=== PATIENT | female | born 1980 | race Caucasian/White ===

== ENCOUNTER 2020-08-27 12:33 | Outpatient (REF) | payer OTHER, MEDICARE, MEDICAID, SELFPAY ==
--- NOTE | 2020-08-27 13:54 | MHC.AU.P13 ---
Hearing Instrument Follow-Up- Binaural Date of Visit: 08/27/20 Package Pick Up Used: ASL- By Video Right Ear: Customer Service Supervisor: Lisset Model: [place] i1600 P+BTE Serial Number: [id number] Repair Warranty: 06/27/2021 Battery Size: 13 Color: Brown Tubing: Tube Lock Type of Mold: Lisset [id number] Type of Wax Guard: Left Ear: Customer Service Supervisor: Lisset Model: [place] i1600 P+BTE Serial Number: [id number] RepairWarranty: 06/27/2021 Battery Size: 13 Color: Brown Type of Mold: Lisset [id number] Type of Wax Guard: Follow-Up Summary: Patient reports Left ear pain and when swallowing some pressure. Feels her ear is shrinking and tender to the touch. Hears an echo, but the hearing has significantly decreased. Otoscopy show clear canals bilaterally and normal tympanogram for the left ear. Advise medical consultation with Dr. Dale and gave phone number. Left aid is not working - Patient did not bring left aid with her today because she has not been wearing it. Right aid, getting feedback, needs new earmolds. Took impressions of both ears without complication and will order skeleton molds from [employer]. Patient will contact PCP for order for new hearing test. WHEN ORDER RECEIVED, NEED TO SCHEDULE HEARING TEST AND EARMOLD FITTING. Recommendations: Recommendations (Other): Patient will contact PCP for order for new hearing test. WHEN ORDER RECEIVED, NEED TO SCHEDULE HEARING TEST AND EARMOLD FITTING. Diagnosis Code(s): Primary Diagnosis: H90.3 Bilateral Sensorineural Hearing Loss Services Performed: Ear Impression (Quantity): 2 NICHOLAS Maintenance, Minor Repair (Quantity): 1 Signature: Provider: Rodney Anderson, [facility]
== END 2020-08-27 12:34 | disposition home or self-care (01) ==
LOC: HO.HAP 12:33
PROVIDERS: Visit Provider Nurse Practitioner Family
DX: Z46.1 Encounter for fitting and adjustment of hearing aid (principal); H90.3 Sensorineural hearing loss, bilateral
CPT/HCPCS: 99499

== ENCOUNTER 2020-11-13 15:53 | Outpatient (REF) | payer MEDICARE, MEDICAID, SELFPAY | END 2020-11-13 15:54 | disposition home or self-care (01) | LOC: HO.HAP 15:53 | PROVIDERS: Visit Provider Nurse Practitioner Family | DX: Z46.1 Encounter for fitting and adjustment of hearing aid (principal); H90.3 Sensorineural hearing loss, bilateral | CPT/HCPCS: 92592; V5264; V5266 ==

== ENCOUNTER 2020-11-28 15:33 | Outpatient (REF) | payer MEDICARE, MEDICAID, SELFPAY ==
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
== END 2020-11-28 15:34 | disposition home or self-care (01) ==
LOC: HO.SH 15:33
PROVIDERS: Visit Provider Nurse Practitioner Family
DX: H90.3 Sensorineural hearing loss, bilateral (principal)
CPT/HCPCS: 92557; 92567

== ENCOUNTER 2021-08-22 10:02 | Outpatient (REF) | payer MEDICARE, MEDICAID, SELFPAY | END 2021-08-22 10:03 | disposition home or self-care (01) | LOC: HO.HAP 10:02 | PROVIDERS: Visit Provider Nurse Practitioner Family | DX: Z46.1 Encounter for fitting and adjustment of hearing aid (principal); H90.3 Sensorineural hearing loss, bilateral | CPT/HCPCS: 92592; V5275 ==

== ENCOUNTER 2021-09-17 15:24 | Outpatient (REF) | payer MEDICARE, MEDICAID, SELFPAY | END 2021-09-17 15:25 | disposition home or self-care (01) | LOC: HO.HAP 15:24 | PROVIDERS: Visit Provider Nurse Practitioner Family | DX: Z46.1 Encounter for fitting and adjustment of hearing aid (principal); H90.3 Sensorineural hearing loss, bilateral | CPT/HCPCS: V5264; V5266 ==

== ENCOUNTER 2021-10-08 13:56 | Outpatient (REF) | payer MEDICARE, MEDICAID, SELFPAY | END 2021-10-08 13:57 | disposition home or self-care (01) | LOC: HO.HAP 13:56 | PROVIDERS: Visit Provider Nurse Practitioner Family | DX: Z13.89 Encounter for screening for other disorder (principal) ==

== ENCOUNTER 2021-12-11 14:55 | Outpatient (REF) | payer MEDICARE, MEDICAID, SELFPAY | END 2021-12-11 14:56 | disposition home or self-care (01) | LOC: HO.HAP 14:55 | PROVIDERS: Visit Provider Nurse Practitioner Family | DX: Z13.89 Encounter for screening for other disorder (principal) ==

== ENCOUNTER 2023-08-06 10:35 | Outpatient (REF) | payer MEDICARE, MEDICAID, SELFPAY ==
--- NOTE | 2023-08-06 13:57 | MHC.AU.MED ---
Medical Clearance for Hearing Instrumentation Date: 08/06/23 Patient Name: Arlyn Corrales Date of : 1980 Primary Care Provider: Referring Provider: Kay Blake PA-C We have seen your patient on 08/06/23 and have determined that they are a candidate for amplification (See accompanying report). Specifically, they would benefit from: Hearing aid use in the right ear There is a statute that addresses Medical Evaluation Requirements prior to fitting a patient with a hearing aid. According to [place] statute 265 CMR:6.03(1), (a) General. Except as provided in 265 CMR 6.03(1)(b), a music rehabilitation therapist shall not sell a hearing aid unless the prospective user has presented to the music rehabilitation therapist a written statement signed by a licensed physician that states that the patient's hearing loss has been medically evaluated and the patient may be considered a candidate for a hearing aid. The medical evaluation must have taken place within the preceding six months. Please note: Due to the [place] Statute referenced above, we cannot accept a signature other than that of a licensed physician. PROFILER and PA signatures cannot be accepted. I am in agreement with the above recommendation. There is no medical contraindication for hearing instrumentation. Physician Signature Date Physician Name (Printed)
== END 2023-08-06 10:36 | disposition home or self-care (01) ==
LOC: HO.SH 10:35
PROVIDERS: Visit Provider Physician Assistant
DX: H90.3 Sensorineural hearing loss, bilateral (principal)
CPT/HCPCS: 92557; 92567; 92590; V5275

== ENCOUNTER 2023-09-09 14:56 | Outpatient (REF) | payer MEDICARE, MEDICAID, SELFPAY | END 2023-09-09 14:57 | disposition home or self-care (01) | LOC: HO.HAP 14:56 | PROVIDERS: Visit Provider Family Medicine | DX: Z46.1 Encounter for fitting and adjustment of hearing aid (principal); H90.3 Sensorineural hearing loss, bilateral | CPT/HCPCS: V5011; V5020; V5241; V5257; V5264 ==

== ENCOUNTER 2023-09-30 14:04 | Outpatient (REF) | payer MEDICARE, MEDICAID, SELFPAY | END 2023-09-30 14:05 | disposition home or self-care (01) | LOC: HO.HAP 14:04 | PROVIDERS: Visit Provider Family Medicine | DX: Z13.89 Encounter for screening for other disorder (principal) ==

== ENCOUNTER 2024-05-10 17:56 | Emergency (ER) | payer OTHER, SELFPAY ==
--- NOTE | ~2024-05-10 | XR_ITS ---
EXAMINATION: XR HAND, LEFT CLINICAL INFORMATION: pain 5th finger, injured at work COMPARISON: None available. TECHNIQUE: PA, lateral, and oblique views of the left hand. FINDINGS: The bones and soft tissues are normal. No fracture. Alignment is anatomic. Joint spaces are maintained. No erosions or soft tissue calcifications. XR/XR hand LT min 3V IMPRESSION: Normal left hand. Electronically signed by: Kirby Cordero MD 05/10/2024 08:06 PM MYKEL SAUER
--- NOTE | 2024-05-10 18:04 | ED.GENADULT ---
HPI - General Adult General Chief complaint: Extremity Injury, Upper Stated complaint: LT hand inj work related Time Seen by Provider: 05/10/24 19:23 Source: patient and market maker ( Patient with hearing impairment only reads lips.) Mode of arrival: ambulatory Limitations: no limitations History of Present Illness ED Provider: DR. Santana HPI narrative: A 43-year-old female came in for evaluation of left hand injury at work. Patient is right-handed dominant. patient was trying to loosen a lug nut from the machine at work when the not suddenly gotten loose patient strike the small finger and the lateral aspect (ulnar aspect) of the left hand in the machine. patient is complaining of severe left hand pain mostly on the ulnar side. Related Data Allergies Allergy/AdvReac Type Severity Reaction Status Date / Time Opioids - Morphine Analogues Allergy Anaphylaxis Verified 05/10/24 18:09 Penicillins [PCN] Allergy Hives Verified 05/10/24 18:09 sulfamethoxazole Allergy Rash Verified 05/10/24 18:09 [From Bactrim] trimethoprim [From Bactrim] Allergy Rash Verified 05/10/24 18:09 Review of Systems Review of Systems: All other systems are reviewed and are negative Constitutional: Reports as per HPI and Reports no additional constitutional complaints Eyes: Reports as per HPI and Reports no additional eye complaints Reports system reviewed and no additional complaints, except as documented Cardiovascular: Reports as per HPI and Reports no additional cardiovascular complaints Respiratory: Reports as per HPI and Reports no additional respiratory complaints Gastrointestinal: Reports as per HPI and Reports no additional gastrointestinal complaints Genitourinary: Reports no additional female genitourinary complaints Musculoskeletal: Reports no additional musculoskeletal complaints Skin/Breast: Reports system reviewed and no additional complaints, except as docu Psychiatric: Reports no additional psychiatric complaints Endocrine: Reports no additional endocrine complaints Hematologic/Lymphatic: Reports no additional hematologic/lymphatic complaints Allergic/Immunologic: Reports no additional allergic/immunologic complaints Reports system reviewed and no additional complaints, except as documented and Reports Abnormal speech present [facility] Social History Social History Advance Directives: No Advance Directives Information Provided: Yes Do you have a plan to hurt others: No Plan Physical Exam ED Vital Signs: Vital Signs - 24 hr 05/10/24 18:06 Temperature 98 F Pulse Rate 68 Respiratory Rate 18 Blood Pressure 128/85 Pulse Oximetry 98 Oxygen Delivery Method Room Air BMI result Body Mass Index 31.7 Vital signs have been reviewed and appear to be correct. Blood pressure elevated. Heart rate normal. Respiratory rate normal. Temperature normal. Oxygen saturation normal. Appearance: Alert. Oriented X3. No acute distress. Head: Normal external exam. Normocephalic. Atraumatic. No Casillas signs noted. No raccoon eyes noted Eyes: PERRLA. EOMI. Conjunctiva and sclera normal. Eyelids normal. ENT: TM's Normal. Pharynx normal. Uvula midline. Moist mucous membranes. No trismus noted. No drooling noted. No muffled voice noted. Neck: Normal inspection. Neck supple. FROM. No adenopathy. Thyroid Normal. No meningeal signs. No neck mass noted. CVS: Normal heart rate and rhythm. Heart sound normal. No murmurs noted. Pulses normal throughout. Respiratory: No respiratory distress. Painless inspiration. Breath sounds normal. No wheezes/rales/rhonchi noted. Chest nontender. No accessory muscle usage noted or decreased air movement noted. Abdomen: Soft and nontender. Bowel sounds normal in all 4 quadrants. No distention noted. No organomegaly noted. No visible injury noted. Back: No CVA tenderness. Full range of motion noted. Skin: Skin warm and dry. Normal skin color. Normal skin turgor. No rashes/lesions/lacerations noted. Extremities: Left hand: Mild tenderness over 5th metacarpal bone on the ulnar side, no deformity, no step-off, neurovascularly intact. Neuro: Oriented X 3. Cranial nerve exam: II-XII are grossly intact No motor deficit. No sensory deficit. Reflexes normal. Course Course Course Narrative: This is a rapid medical exam performed by Mago Vaughn NP: Additional HPI, ROS, PE not included below will be deferred to primary provider. Patient is a 43-year-old hearing impaired right hand dominant female presenting with complaint of pain to left 5th finger. States she was at work attempting to loosen a lug nut when the lug nut suddenly loosened causing her left hand to slam into the machine. Severe pain with attempted movement of left hand. Plan: X-rays Reevaluation(s) Reevaluation #1: Left hand contusion as a work related injury, no acute fracture, no dislocation, instructed to use ibuprofen and ice and follow-up with PCP. Time: 20:30 Medications Administered Discontinued Medications Generic Name Dose Route Start Last Admin Trade Name Jones PRN Reason Stop Dose Admin Ibuprofen 600 mg 05/10/24 19:38 05/10/24 20:21 Ibuprofen 600 Mg Tablet PO 05/10/24 19:39 600 mg ONCE ONE Administration Medical Decision Making Differential Diagnosis Differential Diagnoses: The differential diagnosis associated with the presentation includes ( Left hand fracture, dislocation, neurovascularly intact,) Admission/Observation Consideration of admission/observation: Escalation of care including admission/observation considered Independent Interpretation I performed an independent interpretation of an: Plain X-Ray ( left hand: No acute fracture or dislocation.) Radiology Impression Discussion of test interpretation with radiology: I have reviewed the radiologist's reading. Discharge Plan Discharge Clinical Impression: Contusion of hand, left Patient Disposition: Home, Self-Care Instructions: Contusion in Adults (ED) Additional Instructions: apply ice to the left hand all day today and tomorrow, use ibuprofen [id number] 200 mg tablet every 6 hours if needed for pain. Follow-up with Dr. Mccarthy as instructed. Referrals: Zaida Mccarthy MD [Physician] - Stand Alone Forms: Work/School Release Print Language: Citizen Of [place] Sign Language
[2024-05-10 18:06] VITALS: BP 128/85; PULSE 68; RESP 18; TEMP 36.6; O2SAT 98; BMI 31.7
[2024-05-10] MEDS: Ibuprofen 600 MG TABLET PO (20:21)
--- NOTE | 2024-05-10 20:25 | PC.NURSE ---
pt medicated per provider order. effectiveness pending.
[2024-05-10 20:43] VITALS: BP 137/83; PULSE 58; RESP 12; TEMP 36.6; O2SAT 99
[2024-05-10 20:46] VITALS: BP 137/83; PULSE 58; RESP 12; TEMP 36.6; O2SAT 99
== END 2024-05-10 20:46 | disposition home or self-care (01) ==
PROVIDERS: Emergency Provider Emergency Medicine
DX: S60.222A Contusion of left hand, initial encounter (principal); W22.8XXA Striking against or struck by other objects, initial encounter; Y93.89 Activity, other specified; Y92.59 Other trade areas as the place of occurrence of the external cause; Y99.0 Civilian activity done for income or pay
CPT/HCPCS: 73130; 99283

== ENCOUNTER 2024-05-26 08:03 | Outpatient (REF) | payer OTHER, MEDICAID, SELFPAY | END 2024-05-26 08:04 | disposition home or self-care (01) | LOC: HO.HOSX 08:03 | DX: Z13.89 Encounter for screening for other disorder (principal) ==

== ENCOUNTER 2024-12-19 12:54 | Outpatient (REF) | payer MEDICAID, SELFPAY ==
--- NOTE | 2024-12-19 13:18 | MHC.AU.HA3 ---
Hearing Instrument Follow-Up- Binaural Date of Visit: 12/19/24 Right Ear: Make, Model, Color, Serial Number: Oticon Xceed 2 BTE SP SN: [id number] Color: Chroma Beige [employer] Repair Warranty: 09/29/2026 [employer] Loss and Damage Warranty: 09/29/2026 [facility] Service Plan: 09/08/2024 Battery Size: 13 Leather Cartridge Belt Maker/Slim Tube: Earmold/Dome/CShell/SlimTip:Lisset full shell Type of Wax Guard: Dispensed By: [facility] Date of Fittin09/09/2023 Follow-Up Summary: Tubing slipping out of EM. Cleaned NICHOLAS (1). Cleaned EM (1). Replaced tubing (1). Vacuumed microphones (1). [id number] x4. Ran through dehumidifier. Listening check demonstrated NICHOLAS amplifying clearly. 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 Provided a hearing aid protective sleeve. Recommendations: Hearing instrument follow-up or maintenance as needed. Please contact our clinic with any questions or concerns. Diagnosis Code(s): Primary Diagnosis: H90.3 Bilateral Sensorineural Hearing Loss Signature: Provider: Juli Rodney, [facility]
== END 2024-12-19 12:55 | disposition home or self-care (01) ==
LOC: HO.HAP 12:54
PROVIDERS: Visit Provider Nurse Practitioner Family
DX: Z46.1 Encounter for fitting and adjustment of hearing aid (principal); H90.3 Sensorineural hearing loss, bilateral
CPT/HCPCS: 92592; 99499; V5266